=== PATIENT | female | born 1980 | race Caucasian/White ===

== ENCOUNTER 2022-01-05 16:26 | Inpatient (IN) | payer OTHER ==
[2022-01-05 19:33] VITALS: BMI 18.2
[2022-01-05] MEDS ORDERED: chlordiazePOXIDE HCL 25 MG CAPSULE PO PRN (20:44)
[2022-01-05] MEDS ORDERED: DICYCLOMINE HCL 10 MG CAPSULE PO PRN (20:44)
[2022-01-05] MEDS ORDERED: ACETAMINOPHEN 325 MG TABLET (FP) PO PRN ×2 (20:44)
[2022-01-05] MEDS ORDERED: IBUPROFEN 400 MG TABLET (FP) PO PRN (20:44)
[2022-01-05] MEDS ORDERED: ONDANSETRON *ODT* 4 MG TABLET SL PRN (20:44)
[2022-01-05] MEDS ORDERED: LOPERAMIDE HCL 2 MG CAPSULE PO PRN (20:44)
[2022-01-05] MEDS ORDERED: MAGNESIUM HYDROX 2400MG/30ML ORAL SUSPENSION 30 ML CUP PO PRN (20:44)
[2022-01-05] MEDS ORDERED: BENZOCAINE/MENTHOL (CHLORASEPTIC ) LOZENGE MM PRN (20:44)
[2022-01-05] MEDS ORDERED: MAG HYDROX/AL HYDROX/SIMETH 30 ML UNIT-DOSE CUP PO PRN (20:44)
[2022-01-05] MEDS ORDERED: IBUPROFEN 600 MG TABLET (FP) PO PRN (20:44)
[2022-01-05] MEDS ORDERED: MAGNESIUM CITRATE 300 ML BOTTLE PO PRN (20:44)
[2022-01-05] MEDS ORDERED: BISMUTH SUBSALICYLATE 524 MG/30 ML PO PRN (20:44)
[2022-01-05] MEDS: chlordiazePOXIDE HCL 25 MG CAPSULE PO SCH (23:00)
[2022-01-05] MEDS: THIAMINE HCL 100 MG TABLET (FP) PO SCH (23:00)
[2022-01-05] MEDS: hydrOXYzine PAMOATE 25 MG CAPSULE (FP) PO SCH (23:00)
[2022-01-05] MEDS: MELATONIN 5 MG TABLETS PO SCH (23:01)
[2022-01-06] MEDS: chlordiazePOXIDE HCL 25 MG CAPSULE PO SCH ×4 (06:08→22:21)
[2022-01-06] MEDS: hydrOXYzine PAMOATE 25 MG CAPSULE (FP) PO SCH ×5 (06:08→22:21)
[2022-01-06] MEDS: PRENATAL VITAMINS W/ FOLIC ACID TABLET (FP) PO SCH (11:07)
[2022-01-06] MEDS: METHOCARBAMOL 500 MG TABLET PO PRN (17:40)
[2022-01-06] MEDS: MELATONIN 5 MG TABLETS PO SCH (22:20)
[2022-01-06] MEDS: THIAMINE HCL 100 MG TABLET (FP) PO SCH (22:20)
[2022-01-07] MEDS: hydrOXYzine PAMOATE 25 MG CAPSULE (FP) PO SCH ×5 (07:13→22:05)
[2022-01-07] MEDS: chlordiazePOXIDE HCL 25 MG CAPSULE PO SCH ×4 (07:15→22:05)
[2022-01-07 10:48] LABS: HEMATOCRIT 31.4 % (32.4-45.2); HEMOGLOBIN 9.8 GM/dL (10.7-15.3); MCH 23.8 pg (25.7-33.7); MCHC 31.4 g/dl (32.0-36.0); MEAN CELL VOLUME 75.9 fl (80-96); MEAN PLT VOLUME 8.5 fl (7.5-11.1); PLATELET COUNT 281 10^3/uL (134-434); RBC 4.13 M/mm3 (3.60-5.2); RDW 17.9 % (11.6-15.6); WHITE BLOOD COUNT 4.7 K/mm3 (4.0-10.0)
[2022-01-07 11:22] LABS: CALCIUM 8.4 mg/dL (8.5-10.1)
[2022-01-07 11:25] LABS: CREATININE 0.7 mg/dL (0.55-1.3)
[2022-01-07 11:27] LABS: BILIRUBIN,TOTAL 0.2 mg/dL (0.2-1); TOT PROT 5.8 g/dl (6.4-8.2)
[2022-01-07] MEDS: PRENATAL VITAMINS W/ FOLIC ACID TABLET (FP) PO SCH (13:04)
[2022-01-07] MEDS: FERROUS SO4 325 MG TABLET (FP) PO SCH (17:32)
[2022-01-07] MEDS: METHOCARBAMOL 500 MG TABLET PO PRN (22:05)
[2022-01-07] MEDS: THIAMINE HCL 100 MG TABLET (FP) PO SCH (22:05)
[2022-01-07] MEDS: MELATONIN 5 MG TABLETS PO SCH (22:05)
[2022-01-08] MEDS ORDERED: chlordiazePOXIDE HCL 10 MG CAPSULE PO PRN
[2022-01-08] MEDS: chlordiazePOXIDE HCL 10 MG CAPSULE PO SCH ×4 (06:59→22:11)
[2022-01-08] MEDS: hydrOXYzine PAMOATE 25 MG CAPSULE (FP) PO SCH ×5 (06:59→22:11)
[2022-01-08] MEDS: FERROUS SO4 325 MG TABLET (FP) PO SCH ×3 (07:01→18:41)
[2022-01-08] MEDS: PRENATAL VITAMINS W/ FOLIC ACID TABLET (FP) PO SCH (11:39)
[2022-01-08] MEDS ORDERED: levETIRAcetam XR 750 MG TAB PO SCH ×2 (17:50→22:00)
[2022-01-08] MEDS: METHOCARBAMOL 500 MG TABLET PO PRN (18:44)
[2022-01-08] MEDS: levETIRAcetam XR 750 MG TAB PO SCH (20:00)
[2022-01-08] MEDS: TOPIRAMATE 25 MG TABLET PO SCH (22:10)
[2022-01-08] MEDS: NICOTINE 10 MG CARTRIDGE (INHALER) IH PRN (22:11)
[2022-01-08] MEDS: MELATONIN 5 MG TABLETS PO SCH (22:11)
[2022-01-08] MEDS: THIAMINE HCL 100 MG TABLET (FP) PO SCH (22:12)
[2022-01-09] MEDS: levETIRAcetam XR 750 MG TAB PO SCH ×3 (00:05→22:08)
[2022-01-09] MEDS: chlordiazePOXIDE HCL 10 MG CAPSULE PO SCH ×2 (06:09→18:19)
[2022-01-09] MEDS: hydrOXYzine PAMOATE 25 MG CAPSULE (FP) PO SCH ×5 (06:09→22:07)
[2022-01-09] MEDS: METHOCARBAMOL 500 MG TABLET PO PRN ×2 (06:09→18:19)
[2022-01-09] MEDS: FERROUS SO4 325 MG TABLET (FP) PO SCH ×3 (07:04→18:19)
[2022-01-09] MEDS: PRENATAL VITAMINS W/ FOLIC ACID TABLET (FP) PO SCH (10:41)
[2022-01-09] MEDS: TOPIRAMATE 25 MG TABLET PO SCH ×2 (10:42→22:08)
[2022-01-09] MEDS: NICOTINE POLACRILEX 2 MG GUM BUC PRN (14:53)
[2022-01-09] MEDS: NICOTINE 10 MG CARTRIDGE (INHALER) IH PRN (20:26)
[2022-01-09] MEDS: THIAMINE HCL 100 MG TABLET (FP) PO SCH (22:07)
[2022-01-09] MEDS: MELATONIN 5 MG TABLETS PO SCH (22:07)
[2022-01-10] MEDS ORDERED: chlordiazePOXIDE HCL 10 MG CAPSULE PO ONE (05:00)
[2022-01-10] MEDS: hydrOXYzine PAMOATE 25 MG CAPSULE (FP) PO SCH ×5 (08:07→21:54)
[2022-01-10] MEDS: FERROUS SO4 325 MG TABLET (FP) PO SCH ×3 (08:07→19:36)
[2022-01-10] MEDS: PRENATAL VITAMINS W/ FOLIC ACID TABLET (FP) PO SCH (09:34)
[2022-01-10] MEDS: TOPIRAMATE 25 MG TABLET PO SCH ×2 (09:34→21:54)
[2022-01-10] MEDS: levETIRAcetam XR 750 MG TAB PO SCH ×2 (09:34→21:54)
[2022-01-10] MEDS: NICOTINE POLACRILEX 2 MG GUM BUC PRN ×2 (10:15→14:04)
[2022-01-10] MEDS: THIAMINE HCL 100 MG TABLET (FP) PO SCH (21:54)
[2022-01-10] MEDS: MELATONIN 5 MG TABLETS PO SCH (21:54)
[2022-01-11] MEDS: hydrOXYzine PAMOATE 25 MG CAPSULE (FP) PO SCH ×2 (06:11→09:24)
[2022-01-11] MEDS: FERROUS SO4 325 MG TABLET (FP) PO SCH (07:09)
[2022-01-11] MEDS: NICOTINE POLACRILEX 2 MG GUM BUC PRN (08:39)
[2022-01-11] MEDS: TOPIRAMATE 25 MG TABLET PO SCH (09:23)
[2022-01-11] MEDS: levETIRAcetam XR 750 MG TAB PO SCH (09:23)
[2022-01-11] MEDS: PRENATAL VITAMINS W/ FOLIC ACID TABLET (FP) PO SCH (09:24)
[2022-01-11 10:03] VITALS: BP 99/60; PULSE 81; RESP 17; TEMP 98.1
== END 2022-01-11 10:38 | disposition home or self-care (01) | DRG 774 ==
LOC: YASAS 16:26 → Y6N 21:18
PROVIDERS: ADMIT Allergy & Immunology; ATTEND Family Medicine
PROC: HZ2ZZZZ Detoxification Services for Substance Abuse Treatment (ICD-10-PCS; principal; 2022-01-05)
DX: F10.230 Alcohol dependence with withdrawal, uncomplicated (principal); F14.20 Cocaine dependence, uncomplicated; F17.210 Nicotine dependence, cigarettes, uncomplicated; D50.9 Iron deficiency anemia, unspecified; G40.909 Epilepsy, unspecified, not intractable, without status epilepticus; R76.8 Other specified abnormal immunological findings in serum; R63.4 Abnormal weight loss; Z68.1 Body mass index [BMI] 19.9 or less, adult; Z86.19 Personal history of other infectious and parasitic diseases; Z91.011 Allergy to milk products; Z91.018 Allergy to other foods
CPT/HCPCS: 36415; 80053; 80177; 82607; 82746; 82962; 83540; 83550; 85027; 86593; 86780; 87811; C9803-CS; U0003; U0005